=== PATIENT | female | born 1960 | race Two or more races ===

== ENCOUNTER 2019-03-08 07:34 | Day surgery (SDC) | payer OTHER | END 2019-03-08 14:45 | disposition home or self-care (01) | LOC: AMB-ENDOS 07:34 | DX: C18.6 Malignant neoplasm of descending colon (principal); K57.30 Diverticulosis of large intestine without perforation or abscess without bleeding; K64.8 Other hemorrhoids ==

== ENCOUNTER 2019-03-29 11:29 | Inpatient (IN) | payer OTHER ==
[~2019-03-29] VITALS: Ht 160 cm; Wt 66.7 kg
[2019-04-14] MEDS ORDERED: NORFLEX PO (13:08)
[2019-04-18] MEDS ORDERED: NORFLEX100MG PO (13:37)
[2019-04-21] MEDS ORDERED: INTESTINEX680 M1 PO (11:37)
[2019-04-21] MEDS ORDERED: PERCOCET 5-3251 EACH PO (11:37)
== END 2019-04-21 12:19 | disposition home or self-care (01) | DRG 331 ==
LOC: SURG 04-14 09:15 → SURH 04-18 10:03 → O/R 04-18 10:03 → SURH 04-18 15:49 → SURG 04-18 16:30 → SURH 04-21 12:19
PROVIDERS: ADMIT Surgery
PROC: 07TD4ZZ Resection of Aortic Lymphatic, Percutaneous Endoscopic Approach (ICD-10-PCS; 2019-04-18)
PROC: 0DJD8ZZ Inspection of Lower Intestinal Tract, Via Natural or Artificial Opening Endoscopic (ICD-10-PCS; 2019-04-18)
PROC: 0DBN4ZZ Excision of Sigmoid Colon, Percutaneous Endoscopic Approach (ICD-10-PCS; principal; 2019-04-18 16:30)
DX: C18.6 Malignant neoplasm of descending colon (principal); D12.5 Benign neoplasm of sigmoid colon; K57.30 Diverticulosis of large intestine without perforation or abscess without bleeding; R19.4 Change in bowel habit; R59.0 Localized enlarged lymph nodes; K66.0 Peritoneal adhesions (postprocedural) (postinfection); R73.01 Impaired fasting glucose

== ENCOUNTER 2020-04-10 06:40 | Day surgery (SDC) | payer OTHER ==
[~2020-04-10 06:40] MED LIST: INTESTINEX680 M1 PO; NORFLEX PO; NORFLEX100MG PO; PERCOCET 5-3251 EACH PO
== END 2020-04-10 12:00 | disposition home or self-care (01) ==
LOC: AMB-ENDOS 06:40 → ADM 13:45
PROVIDERS: ATTEND Surgery
DX: D12.0 Benign neoplasm of cecum (principal); D12.3 Benign neoplasm of transverse colon; K64.8 Other hemorrhoids

== ENCOUNTER → 2021-06-18 | Day surgery (SDC) | payer OTHER | END | disposition home or self-care (01) | LOC: ADM 06-13 13:00 → AMB-ENDOS 09:05 | PROVIDERS: ATTEND Surgery | DX: K63.5 Polyp of colon (principal); K64.8 Other hemorrhoids; Z20.822 Contact with and (suspected) exposure to COVID-19 ==

== ENCOUNTER 2021-09-09 10:53 | Emergency (ER) | payer OTHER ==
[~2021-09-09] VITALS: Ht 160 cm; Wt 61.2 kg
[2021-09-09] MEDS ORDERED: SYMAX0.125 MG PO (11:09)
[2021-09-09] MEDS ORDERED: 24HR ALLERGY REL5 MG PO (11:10)
[2021-09-09] MEDS ORDERED: INTESTINEX680 M1 PO (19:32)
[2021-09-09] MEDS ORDERED: LEVSIN/SL0.125 MG PO (19:32)
== END 2021-09-09 19:35 ==
LOC: ER 10:53
DX: K62.5 Hemorrhage of anus and rectum (principal); Z85.038 Personal history of other malignant neoplasm of large intestine; Z08 Encounter for follow-up examination after completed treatment for malignant neoplasm
CPT/HCPCS: 74177; Q9965

== ENCOUNTER 2022-03-03 05:35 | Day surgery (SDC) | payer OTHER ==
[~2022-03-03] VITALS: Ht 160 cm; Wt 65.8 kg
[~2022-03-03 05:35] MED LIST changes: +24HR ALLERGY REL5 MG PO; +LEVSIN/SL0.125 MG PO; +SYMAX0.125 MG PO
[2022-03-03] MEDS ORDERED: RECTICARE30 GM TOP (08:30)
[2022-03-03] MEDS ORDERED: PERCOCET 5-3251 EACH PO (08:30)
== END 2022-03-03 14:15 | disposition home or self-care (01) ==
LOC: CIR.AMB 05:35
PROVIDERS: ATTEND Surgery
DX: K64.2 Third degree hemorrhoids (principal); K57.30 Diverticulosis of large intestine without perforation or abscess without bleeding; C18.6 Malignant neoplasm of descending colon; Z87.891 Personal history of nicotine dependence; R73.03 Prediabetes; K21.9 Gastro-esophageal reflux disease without esophagitis; R42 Dizziness and giddiness; Z20.822 Contact with and (suspected) exposure to COVID-19